=== PATIENT | male | born 1970 | race Caucasian/White ===

== ENCOUNTER 2020-05-30 14:41 | Emergency (ER) | payer MEDICAID, MEDICARE, OTHER ==
[~2020-05-30] VITALS: Ht 163 cm; Wt 99.2 kg
--- NOTE | 2020-05-30 14:59 | ED Chest Pain ---
General Chief Complaint: Chest Pain Stated Complaint: CP Source: patient Exam Limitations: no limitations History of Present Illness Date Seen by Provider: May 30, 2020 Time Seen by Provider: 14:55 Initial Comments Obese type II DM hypertensive male without coronary history to ER by EMS from [facility] with reports of chest pain. The pain is sharp in nature worsened by laying supine and improved by sitting upright. He's had this for about 2 weeks. No fevers or chills no cough. He has had some slight shortness of breath. Has had some n/v/d x 3 days. Had rapid covid at [facility] talking aboutdone which was negative. Was given 324 mg ASA and 1 nitroglycerin en route to the hospital with reduction in pain from 8 to 3. Timing/Duration: 4-6 hours, other (2 weeks ) Severity/Quality: moderate Radiation: no radiation Activities at Onset: none ASA po BODY FINISHER: No NTG SL BODY FINISHER: No Associated Symptoms: nausea/vomiting, shortness of breath Allergies and Home Medications Patient Home Medication List Home Medication List Reviewed: Yes Review of Systems Review of Systems Constitutional: see HPI EENTM: No Symptoms Reported Respiratory: See HPI; Denies Cough, Denies Orthopnea; Shortness of Air Cardiovascular: See HPI, Chest Pain Gastrointestinal: No Symptoms Reported Genitourinary: No Symptoms Reported Musculoskeletal: no symptoms reported Skin: no symptoms reported Psychiatric/Neurological: No Symptoms Reported Endocrine: No Symptoms Reported Hematologic/Lymphatic: No Symptoms Reported Physical Exam Vital Signs Vital Signs - First Documented 05/30/20 14:45 Temp 35.7 Pulse 89 Resp 18 B/P (MAP) 159/96 (117) Pulse Ox 96 O2 Delivery Room Air Capillary Refill : Less Than 3 Seconds Height, Weight, BMI Height: '" Weight: lbs. oz. kg; BMI Method: General Appearance: No Apparent Distress, WD/WN HEENT: PERRL/EOMI, TMs Normal Neck: Full Range of Motion, Normal Inspection Respiratory: Lungs Clear, Normal Breath Sounds, No Accessory Muscle Use, No Respiratory Distress Cardiovascular: Regular Rate, Rhythm, Normal Peripheral Pulses Gastrointestinal: Normal Bowel Sounds, Non Tender, Soft Extremity: Normal Capillary Refill Neurologic/Psychiatric: Alert, Oriented x3 Skin: Normal Color, Warm/Dry Progress/Results/Core Measures Results/Orders Lab Results Laboratory Tests Test 05/30/20 14:45 05/30/20 16:35 Range/Units White Blood Count 6.3 4.3-11.0 10^3/uL Red Blood Count 5.64 H 4.30-5.52 10^6/uL Hemoglobin 16.0 13.3-17.7 g/dL Hematocrit 48 40-54 % Mean Corpuscular Volume 85 80-99 fL Mean Corpuscular Hemoglobin 28 25-34 pg Mean Corpuscular Hemoglobin Concent 33 32-36 g/dL Red Cell Distribution Width 13.8 10.0-14.5 % Platelet Count 235 130-400 10^3/uL Mean Platelet Volume 9.8 9.0-12.2 fL Immature Granulocyte % (Auto) 0 % Neutrophils (%) (Auto) 64 42-75 % Lymphocytes (%) (Auto) 23 12-44 % Monocytes (%) (Auto) 8 0-12 % Eosinophils (%) (Auto) 4 0-10 % Basophils (%) (Auto) 1 0-10 % Neutrophils # (Auto) 4.0 1.8-7.8 X 10^3 Lymphocytes # (Auto) 1.5 1.0-4.0 X 10^3 Monocytes # (Auto) 0.5 0.0-1.0 X 10^3 Eosinophils # (Auto) 0.2 0.0-0.3 10^3/uL Basophils # (Auto) 0.0 0.0-0.1 10^3/uL Immature Granulocyte # (Auto) 0.0 0.0-0.1 10^3/uL Prothrombin Time 13.2 12.2-14.7 SEC INR Comment 1.0 0.8-1.4 Activated Partial Thromboplast Time 27 24-35 SEC D-Dimer 0.27 0.00-0.49 UG/ML Sodium Level 134 L 135-145 MMOL/L Potassium Level 4.3 3.6-5.0 MMOL/L Chloride Level 101 98-107 MMOL/L Carbon Dioxide Level 22 21-32 MMOL/L Anion Gap 11 5-14 MMOL/L Blood Urea Nitrogen 15 7-18 MG/DL Creatinine 1.10 0.60-1.30 MG/DL Estimat Glomerular Filtration Rate > 60 BUN/Creatinine Ratio 14 Glucose Level 286 H 70-105 MG/DL Calcium Level 9.1 8.5-10.1 MG/DL Corrected Calcium 9.0 8.5-10.1 MG/DL Magnesium Level 1.7 1.6-2.4 MG/DL Total Bilirubin 0.6 0.1-1.0 MG/DL Aspartate Amino Transf (AST/SGOT) 22 5-34 U/L Alanine Aminotransferase (ALT/SGPT) 31 0-55 U/L Alkaline Phosphatase 58 40-136 U/L Myoglobin 32.1 10.0-92.0 NG/ML Troponin I < 0.028 < 0.028 <0.028 NG/ML B-Type Natriuretic Peptide < 10.0 <100.0 PG/ML Total Protein 7.5 6.4-8.2 GM/DL Albumin 4.1 3.2-4.5 GM/DL My Orders Orders - LOR MALLORY APRN Cbc With Automated Diff (05/30/20 14:54) Magnesium (05/30/20 14:54) Chest 1 View, Ap/Pa Only (05/30/20 14:54) Ekg Tracing (05/30/20 14:54) Comprehensive Metabolic Panel (05/30/20 14:54) Myoglobin Serum (05/30/20 14:54) Protime With Inr (05/30/20 14:54) Partial Thromboplastin Time (05/30/20 14:54) O2 (05/30/20 14:54) Monitor-Rhythm Ecg Trace Only (05/30/20 14:54) Lipid Panel (05/31/20 06:00) Ed Iv/Invasive Line Start (05/30/20 14:54) Troponin I (05/30/20 14:54) BNP (05/30/20 14:54) Fibrin Degradation Products (05/30/20 15:28) Troponin I (05/30/20 16:45) Vital Signs/I&O 05/30/20 05/30/20 14:45 14:45 Temp 35.7 Pulse 89 Resp 18 B/P (MAP) 159/96 (117) Pulse Ox 96 O2 Delivery Room Air Departure Impression Primary Impression: Chest pain Disposition: 01 HOME, SELF-CARE Condition: Stable Departure-Patient Inst. Decision time for Depature: 17:04 Referrals: [facility] (PCP/Family) Primary Care Physician Patient Instructions: Chest Pain (DC) Add. Discharge Instructions: 1. Follow-up with [facility] next week for recheck. Return to ER over the weekend for any worsening or recurrent symptoms. All discharge instructions reviewed with patient and/or family. Voiced understanding. LOR MALLORY HYDROLOGIST May 30, 2020 14:59
[2020-05-30 15:02] LABS: BASOPHILS % (AUTO) 1 % (0-10); EOSINOPHILS # (AUTO) 0.2 10^3/uL (0.0-0.3); EOSINOPHILS % (AUTO) 4 % (0-10); HEMATOCRIT 48 % (40-54); LYMPHOCYTES # (AUTO) 1.5 X 10^3 (1.0-4.0); LYMPHOCYTES % (AUTO) 23 % (12-44); MEAN CORPUSCULAR HEMOGLOBIN 28 pg (25-34); MEAN CORPUSCULAR HGB CONC 33 g/dL (32-36); MEAN CORPUSCULAR VOLUME 85 fL (80-99); MEAN PLATELET VOLUME 9.8 fL (9.0-12.2); MONOCYTES # (AUTO) 0.5 X 10^3 (0.0-1.0); MONOCYTES % (AUTO) 8 % (0-12); NEUTROPHILS % (AUTO) 64 % (42-75); PLATELET COUNT 235 10^3/uL (130-400); WHITE BLOOD COUNT 6.3 10^3/uL (4.3-11.0)
[2020-05-30 15:10] LABS: ALBUMIN 4.1 GM/DL (3.2-4.5); PROTHROMBIN TIME PATIENT 13.2 SEC (12.2-14.7)
[2020-05-30 15:11] LABS: CHLORIDE 101 MMOL/L (98-107); POTASSIUM 4.3 MMOL/L (3.6-5.0); SODIUM 134 MMOL/L (135-145)
[2020-05-30 15:12] LABS: CALCIUM 9.1 MG/DL (8.5-10.1)
[2020-05-30 15:13] LABS: GLUCOSE 286 MG/DL (70-105); TOTAL PROTEIN 7.5 GM/DL (6.4-8.2)
[2020-05-30 15:14] LABS: CARBON DIOXIDE 22 MMOL/L (21-32)
[2020-05-30 15:15] LABS: BILIRUBIN,TOTAL 0.6 MG/DL (0.1-1.0)
[2020-05-30 15:16] LABS: ALKALINE PHOSPHATASE 58 U/L (40-136)
[2020-05-30 15:17] LABS: GFR ESTIMATED > 60
[2020-05-30 15:18] LABS: BUN/CREATININE RATIO 14
[2020-05-30 15:20] LABS: ALANINE AMINOTRANSFERASE 31 U/L (0-55); MAGNESIUM 1.7 MG/DL (1.6-2.4)
--- NOTE | 2020-05-30 15:47 | Diagnostic Imaging Report ---
INDICATION: Chest pain. EXAMINATION: Frontal chest was obtained at 3:45 p.m. FINDINGS: Heart and mediastinal silhouette are normal in appearance. There is elevation of the right hemidiaphragm. There is no focal infiltrate, pneumothorax or pleural fluid. IMPRESSION: No acute process in the chest. Dictated by: Dictated on workstation # [id number]
[2020-05-30 17:13] VITALS: BP 150/85
== END 2020-05-30 17:16 | disposition home or self-care (01) ==
LOC: ER 14:47
DX: R07.9 Chest pain, unspecified (principal); E11.9 Type 2 diabetes mellitus without complications; E66.9 Obesity, unspecified; I10 Essential (primary) hypertension; Z20.828 Contact with and (suspected) exposure to other viral communicable diseases
CPT/HCPCS: 36415; 71045; 80053; 83735; 83874; 83880; 84484; 85025; 85379; 85610; 85730; 93005; 93041